=== PATIENT | female | born 1980 | race Two or more races ===

== ENCOUNTER 2016-05-23 13:50 | Outpatient (CLI) | payer MEDICAID ==
[2016-05-23 14:06] VITALS: BMI 35.2
== END 2016-05-23 15:03 | disposition home or self-care (01) ==
LOC: FBCOUT 13:50 → FBC 13:50 → FBCOUT 15:03
PROVIDERS: ATTEND Family Medicine
DX: O47.9 False labor, unspecified (principal); Z3A.00 Weeks of gestation of pregnancy not specified
CPT/HCPCS: 59025; G0463

== ENCOUNTER 2016-05-31 04:28 | Inpatient (IN) | payer MEDICAID ==
[2016-05-31] MEDS ORDERED: LIDOCAINE Viscous 2% 15 ML UDCUP ONE (04:32)
[2016-05-31] MEDS ORDERED: LIDOCAINE 1% (PRES FREE) 30 ML VIAL ONE (04:32)
[2016-05-31] MEDS ORDERED: MINERAL OIL 25 ML BOT ONE (04:32)
[2016-05-31] MEDS ORDERED: PUMP TUBING ONE (04:32)
[2016-05-31] MEDS ORDERED: OXYTOCIN 10 UNITS/ML VIAL ONE (04:32)
[2016-05-31] MEDS ORDERED: OXYTOCIN 10 UNITS/ML VIAL IM ONE (04:37)
[2016-05-31] MEDS ORDERED: OXYTOCIN IN NS 500 ML IV ONE ×2 (05:29→06:15)
[2016-05-31 05:37] VITALS: BMI 36.8
[2016-05-31] MEDS ORDERED: SENNOSIDES 8.6 MG TABLET PO PRN (05:39)
[2016-05-31] MEDS ORDERED: HYDROCODONE/ACETAMINOPHEN 5/325MG TABLET PO PRN (05:39)
[2016-05-31] MEDS ORDERED: DOCUSATE SODIUM 100 MG CAPSULE PO PRN (05:39)
[2016-05-31] MEDS ORDERED: BENZOCAINE/MENTHOL 60 APPLIC/BOT TP PRN (05:39)
[2016-05-31] MEDS ORDERED: MAGNESIUM HYDROXIDE 30 ML UDCUP PO PRN (05:39)
[2016-05-31] MEDS ORDERED: LANOLIN 50 APPLIC/7G TUBE TP PRN (05:39)
[2016-05-31] MEDS ORDERED: OXYTOCIN IN LR 500 ML IV ONE (05:40)
--- NOTE | 2016-05-31 05:59 | PCMAN ---
OB Admission Note - History : 5 Term: 3 : 0 Abortions (S&E): 1 Livin EDC:: 06/08/16 Gestational Age (weeks): 38 Days (#/7): 6 Admit Cervical Dilation:: anterior lip Admit Cervical Effacement (%):: 100 Admit Station:: +1 Membrane Status: Intact Labor Onset (Date): 05/31/16 Labor Onset (Time): 03:00 Contractions: Yes Contraction Frequency:: 2-4 Heart Rate:: 140 Status:: reassuring Summary of Course:: Unremarkable course. AMA and had reassuring antepartum surveillance. - Labs Blood Type: O (+) positive Rubella Status: Immune GBS Status: Negative Abnormal Labs: None - Review of Systems 12 point ROS was wnl except for contraction pain - Physical Exam General: Moderate Distress (with contractions) Abdomen: Other (gravid, non-tender) Extremities: Full ROM - Problems (1) Term Status: Acute Code: Z34.80Assessment/Plan: 35 yo @ 38 6/7wks presented in active labor and ready to push. GBS negative. FHTs reassuring. -will admit and set up for rapid delivery -will plan on giving Pit 10 units IM for third stage management as no time to place IV
[2016-05-31] MEDS: IBUPROFEN 800 MG TABLET PO PRN ×2 (08:37→20:51)
--- NOTE | 2016-05-31 14:45 | PCMDEL ---
Delivery Note - Labor 1st stage (hr/min):: 1hr 38min 2nd stage (hr/min):: 34 min 3rd stage (hr/min):: 2 min Total (hr/min):: 2 hrs 24 min Pushed (hr/min):: 34 min - Delivery Delivery (Date): 05/31/16 Delivery (Time): 05:12 Infant Gender: Male Weight: 3.4 kg Presentation: Cephalic Position: OA Umbilical Cord: 3 Vessel Delayed Cord Clamping:: < 1-2 min 1 Minute Total: 9 5 Minute Total: 9 Placenta:: complete EBL:: 250 ml Perineum:: intact Suture:: n/a Anesthesia/Meds:: Pitocin 10 units IM, Pitocin 30 units IV Length ROM:: 34 min Comments:: Vigorous male delivered over intact perineum and was placed on mom's chest. Cord was clamped >2 min. Placenta delivered complete with 3 vessel cord. 10 units Pitocin was given IM. EBL was 250ml initially but due to ongoing bleeding, fundal massage was applied, an IV was placed and Pitocin 30 units were given. Uterus became firm quickly and bleeding subsided. Mom remained hemodynamically stable throughout. There were no lacerations.
[2016-06-01 05:59] LABS: HEMATOCRIT 36.3 % (37.0-47.0); HEMOGLOBIN 11.7 gm/l (12.0-16.0)
[2016-06-01] MEDS: IBUPROFEN 800 MG TABLET PO PRN ×2 (06:00→11:47)
[2016-06-01 09:03] VITALS: BP 100/55
--- NOTE | 2016-06-01 12:36 | PDOC39B ---
Hospital Course: ADMIT DATE: 05/31/16 DISCHARGE DATE: 06/01/16 ADMISSION DIAGNOSES: Term Advanced Maternal Age PROCEDURES/EVENTS: [facility] HOSPITAL COURSE: 35 yo who presented at 38 6/7 weeks in active labor ready to push. She delivered a viable male via with Apgars of 9/9 with EBL of 250 mL without complication. Her course was uncomplicated. By the day of discharge the patient was ambulating, eating, voiding, and passing flatus without difficulty. Pain controlled and lochia appropriate. She is . She is undecided on her control method. Pediatric provider is ROMEO. - Physical Exam Vital Signs: Temp Pulse Resp BP Pulse Ox 98.1 F 76 18 100/55 06/01/16 08:30 06/01/16 08:30 06/01/16 08:30 06/01/16 08:30 General: Afebrile Psych/Mental Status: Mood/Affect Appropriate Neurological: Oriented x 4 Lungs: Clear to Auscultation Bilaterally Cardiovascular: Regular Rate and Rhythm Fundus: Firm, Below Umbilicus - Discharge Diagnosis (1) Vaginal delivery Status: AcuteAssessment/Plan: Doing well Normal exam Support breast feeding OK to DC today - Discharge Plan Condition: Stable Disposition: Home Prescriptions: Docusate Sodium [COLACE 100 MG CAPSULE (SHF)] 100 mg PO DAILY PRN #60 PRN Reason: Comfort Ibuprofen [IBUPROFEN 800 MG TABLET (SHF)] 800 mg PO Q6H PRN #60 PRN Reason: Pain (Mild) Pnv95/Ferrous Fumarate/FA [ Formula Tablet] 1 tab PO DAILY #30 Sennosides [SENOKOT 8.6 MG TABLET (SHF)] 17.2 mg PO BEDTIME PRN #60 PRN Reason: Comfort Follow-Up: Wilma Lassiter PA-C [Physician [facility]] - In 6 weeks
[2016-06-01] MEDS ORDERED: IV START KIT ONE (15:11)
== END 2016-06-01 13:40 | disposition home or self-care (01) | DRG 775 ==
LOC: FBCOUT 04:28 → FBC 04:28 → FBCOUT 04:32
PROVIDERS: ADMIT Family Medicine; ATTEND Family Medicine
PROC: 10E0XZZ Delivery of Products of Conception, External Approach (ICD-10-PCS; principal; 2016-05-31)
DX: O62.3 Precipitate labor (principal); O09.523 Supervision of elderly multigravida, third trimester; O09.43 Supervision of pregnancy with grand multiparity, third trimester; Z3A.38 38 weeks gestation of pregnancy; Z37.0 Single live birth